=== PATIENT | male | born 1955 | race Caucasian/White ===

== ENCOUNTER 2017-07-08 15:00 | Outpatient (RCR) | payer BC ==
[2013-08-23 14:04] VITALS: BP 146/91
[~2017-07-08 15:00] MED LIST: LEVAQUIN 5500 MG/TA1 PO; PREDNISONE20 MG PO
== END 2017-07-08 15:30 | disposition still patient (30) ==
LOC: PT 15:00
DX: M25.512 Pain in left shoulder (principal)

== ENCOUNTER → 2017-08-19 | Outpatient (CLI) | payer BC ==
[2013-08-23 14:04] VITALS: BP 146/91
== END ==
LOC: RAD 09:54
DX: R09.89 Other specified symptoms and signs involving the circulatory and respiratory systems (principal); I65.23 Occlusion and stenosis of bilateral carotid arteries

== ENCOUNTER → 2018-09-09 | Outpatient (CLI) | payer BC ==
[2013-08-23 14:04] VITALS: BP 146/91
== END ==
LOC: RAD 12:49
DX: R09.89 Other specified symptoms and signs involving the circulatory and respiratory systems (principal)

== ENCOUNTER 2019-05-04 14:30 | Outpatient (RCR) | payer BC ==
[2013-08-23 14:04] VITALS: BP 146/91
== END 2019-05-04 15:00 | disposition still patient (30) ==
LOC: PT 14:30
DX: M25.511 Pain in right shoulder (principal); M75.91 Shoulder lesion, unspecified, right shoulder

== ENCOUNTER → 2019-05-11 | Outpatient (CLI) | payer BC ==
[2013-08-23 14:04] VITALS: BP 146/91
== END ==
LOC: VAS 15:36 → RAD 16:00
DX: I10 Essential (primary) hypertension (principal); R01.1 Cardiac murmur, unspecified

== ENCOUNTER → 2020-03-18 | Outpatient (CLI) | payer BC ==
[2013-08-23 14:04] VITALS: BP 146/91
== END ==
LOC: RAD 08:08
DX: Z13.6 Encounter for screening for cardiovascular disorders (principal); Z87.891 Personal history of nicotine dependence

== ENCOUNTER → 2020-09-20 | Outpatient (CLI) | payer MEDICARE, BC ==
[2013-08-23 14:04] VITALS: BP 146/91
[2020-09-20 09:34] LABS: CALCIUM 9.5 mg/dL (8.3-10.5)
[2020-09-20 11:30] LABS: POTASSIUM 6.2 mmol/L (3.5-5.1)
== END ==
LOC: LAB 08:39
PROVIDERS: Family Medicine
DX: E87.5 Hyperkalemia (principal)